=== PATIENT | male | born 1980 | race African-American/Black ===

== ENCOUNTER 2017-12-11 01:25 | Emergency (ER) | payer OTHER ==
[~2017-12-11] VITALS: Ht 172.7 cm; Wt 72.6 kg
--- NOTE | 2017-12-11 01:35 | NUR ---
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 PT AAOX4. RESP EVEN AND MILDLY LABORED. AUDIBLE WHEEZES NOTED. NO S/S OF ACUTE DISTRESS NOTED. SKIN WNL AND WARM TO TOUCH. PT PLACED ON MONITOR AND POX. AWAITING MD FOR EVAL. CALL LIGHT WITHIN REACH.
[2017-12-11] MEDS ORDERED: IPRATROPIUM NEB FS 0.5 MG/2.5 ML AMPUL.NEB NEB ONE (02:30)
[2017-12-11] MEDS ORDERED: ALBUTEROL FS 2.5 MG/3 ML VIAL.NEB NEB ONE (02:30)
--- NOTE | 2017-12-11 03:10 | NUR ---
RT CALLED FOR BREATHING TREATMENT
[2017-12-11] MEDS ORDERED: ALBUTEROL FS 2.5 MG/3 ML VIAL.NEB ONE (03:14)
[2017-12-11] MEDS ORDERED: IPRATROPIUM NEB FS 0.5 MG/2.5 ML AMPUL.NEB ONE (03:14)
--- NOTE | 2017-12-11 03:25 | NUR ---
RT BEDSIDE FOR BREATHING TREATMENT
--- NOTE | 2017-12-11 04:08 | NUR ---
Patient discharged to home in stable condition. Written and verbal after care instructions and Rx given. Patient verbalizes understanding of instruction. VSS upon discharge. pt ambulated with steady gait out of ER.
[2017-12-11 04:10] VITALS: BP 134/86
== END 2017-12-11 04:12 | disposition home or self-care (01) ==
LOC: ER 01:30
DX: J98.01 Acute bronchospasm (principal); R07.1 Chest pain on breathing
CPT/HCPCS: 71045-TC; A4606; Z7610

== ENCOUNTER 2018-12-16 00:35 | Emergency (ER) | payer OTHER ==
[~2018-12-16] VITALS: Ht 172.7 cm; Wt 72.6 kg
--- NOTE | 2018-12-16 01:16 | NUR ---
PT BIB SELF COMPLAINING OF SHORTNESS OF BREATH, WHEEZING, CHEST PAIN X 3-4 HOURS. PT HAD HISTORY OF ASTHMA A CHILD. PT IS AWAKE ALERT ORIENTED X4. VSS
[2018-12-16] MEDS ORDERED: ALBUTEROL FS 2.5 MG/0.5 ML VIAL.NEB ONE (01:22)
[2018-12-16] MEDS: ALBUTEROL FS 2.5 MG/0.5 ML VIAL.NEB NEB ONE (01:27)
--- NOTE | 2018-12-16 01:30 | NUR ---
RT AT BEDSIDE TO GIVE PT BREATHING TX
[2018-12-16] MEDS ORDERED: KETOROLAC TROMETHAMINE INJ 60 MG/2 ML VIAL IM ONE (01:39)
[2018-12-16] MEDS: KETOROLAC TROMETHAMINE INJ 60 MG/2 ML VIAL IM ONE (01:43)
[2018-12-16 01:54] VITALS: BP 148/87
== END 2018-12-16 01:55 | disposition home or self-care (01) ==
LOC: ER 00:35
DX: J45.909 Unspecified asthma, uncomplicated (principal); F10.10 Alcohol abuse, uncomplicated; Y90.9 Presence of alcohol in blood, level not specified; Z88.0 Allergy status to penicillin
CPT/HCPCS: 71045-TC; J1885